=== PATIENT | male | born 1990 | race Caucasian/White ===

== ENCOUNTER 2017-02-23 15:47 | Emergency (ER) | payer SELFPAY ==
[2017-02-23] MEDS ORDERED: NS 0.9% 1000 ML* 1,000 ML IV ONE (17:09)
[2017-02-23] MEDS ORDERED: Ondansetron INJ* 2 MG/ML VIAL IV ONE (17:09)
[2017-02-23 17:36] LABS: Hematocrit 49 % (42-52); Hemoglobin 16.4 g/dl (14.0-18.0); Mean Corpuscular HGB Conc 34 g/dl (31-36); Mean Corpuscular Hemoglobin 30 pg (27-31); Mean Corpuscular Volume 88 fL (80-94); Mean Platelet Volume 9 um3 (7.4-10.4); Red Blood Count 5.49 10^6/ul (4.0-5.4); Red Cell Distribution Width 13 % (10.5-15); White Blood Count 9.6 10^3/ul (3.5-10.8)
[2017-02-23 17:52] LABS: Albumin 4.6 g/dL (3.2-5.2); BUN/Creatinine Ratio 9.1 (8-20); Calcium 9.1 mg/dL (8.6-10.3); EGFR Non-African American 66.1 (>60); Globulin 3.3 g/dL (2-4); Potassium 3.6 mmol/L (3.5-5.0); Total Bilirubin 0.7 mg/dL (0.2-1.0); Total Protein 7.9 g/dL (6.4-8.9)
[2017-02-23] MEDS ORDERED: Ketorolac INJ* 30 MG/ML 1 ML VIAL IV ONE (18:17)
--- NOTE | 2017-02-23 18:41 | ED ---
Farhana Jarvis Anna, scribed for Solitario Kan MD on 02/23/17 at 1716 . GI/ HPI - HPI Summary HPI Summary: Patient is a 26 y/o male coming to [facility] presenting with intermittent watery diarrhea that began last night. The diarrhea is described as watery. He also experienced emesis yesterday, which has since resolved. He also feels spacey and has noticed some numbness and tingling in his hands. Denies abdominal cramping. Denies recent travel. Many of his co-workers were recently ill. He has been drinking Gatorade. - History of Current Complaint Chief Complaint: EDNauseaVomitDiarrh Time Seen by Provider: 02/23/17 16:58 Stated Complaint: DIZZINESS,NUMBNESS IN EXTREMITIES Hx Obtained From: Patient Pain Intensity: 7 - Allergy/Home Medications Allergies/Adverse Reactions: Allergies Allergy/AdvReac Type Severity Reaction Status Date / Time No Known Allergies Allergy Verified 02/23/17 17:29 PMH/Surg Hx/FS Hx/Imm Hx Cardiovascular History: Reports: Hx Hypertension Denies: Hx Myocardial Infarction Respiratory History: Denies: Hx Pulmonary Edema Infectious Disease History: No Infectious Disease History: Denies: Traveled Outside the [place] in Last 30 Days - Social History Alcohol Use: Occasionally Substance Use Type: Reports: Marijuana Smoking Status (MU): Current Every Day Smoker Review of Systems Positive: Vomiting, Diarrhea. Negative: Abdominal Pain Psychological: Normal All Other Systems Reviewed And Are Negative: Yes Physical Exam Triage Information Reviewed: Yes Vital Signs On Initial Exam: Initial Vitals Temp Pulse Resp BP Pulse Ox 98.4 F 106 16 129/83 97 02/23/17 16:00 02/23/17 16:00 02/23/17 16:00 02/23/17 16:00 02/23/17 16:00 Vital Signs Reviewed: Yes Appearance: Positive: Well-Appearing, No Pain Distress Skin: Positive: Warm, Skin Color Reflects Adequate Perfusion, Dry Head/Face: Positive: Normal Head/Face Inspection Eyes: Positive: Normal ENT: Positive: Normal ENT inspection Neck: Positive: Supple, Nontender Respiratory/Lung Sounds: Positive: Clear to Auscultation, Breath Sounds Present Cardiovascular: Positive: RRR Abdomen Description: Positive: Nontender, Soft Bowel Sounds: Positive: Present Musculoskeletal: Positive: Normal Neurological: Positive: Normal Psychiatric: Positive: Affect/Mood Appropriate - Ashby Coma Scale Coma Scale Total: 15 Diagnostics - Vital Signs Vital Signs Temp Pulse Resp BP Pulse Ox 02/23/17 16:00 98.4 F 106 16 129/83 97 - Laboratory Lab Results: Lab Results 02/23/17 02/23/17 Range/Units 17:20 17:20 WBC 9.6 (3.5-10.8) 10^3/ul RBC 5.49 H (4.0-5.4) 10^6/ul Hgb 16.4 (14.0-18.0) g/dl Hct 49 (42-52) % MCV 88 (80-94) fL MCH 30 (27-31) pg MCHC 34 (31-36) g/dl RDW 13 (10.5-15) % Plt Count 156 (150-450) 10^3/ul MPV 9 (7.4-10.4) um3 Neut % (Auto) 75.0 (38-83) % Lymph % (Auto) 14.0 L (25-47) % Mckenzie % (Auto) 10.8 H (1-9) % Eos % (Auto) 0 (0-6) % Baso % (Auto) 0.2 (0-2) % Absolute Neuts (auto) 7.2 (1.5-7.7) 10^3/ul Absolute Lymphs (auto) 1.4 (1.0-4.8) 10^3/ul Absolute Monos (auto) 1.0 H (0-0.8) 10^3/ul Absolute Eos (auto) 0 (0-0.6) 10^3/ul Absolute Basos (auto) 0 (0-0.2) 10^3/ul Absolute Nucleated RBC 0 10^3/ul Nucleated RBC % 0 Sodium 132 L (133-145) mmol/L Potassium 3.6 (3.5-5.0) mmol/L Chloride 96 L (101-111) mmol/L Carbon Dioxide 27 (22-32) mmol/L Anion Gap 9 (2-11) mmol/L BUN 12 (6-24) mg/dL Creatinine 1.32 H (0.67-1.17) mg/dL Est GFR ( Amer) 85.0 (>60) Est GFR (Non-Af Amer) 66.1 (>60) BUN/Creatinine Ratio 9.1 (8-20) Glucose 100 (70-100) mg/dL Calcium 9.1 (8.6-10.3) mg/dL Total Bilirubin 0.70 (0.2-1.0) mg/dL AST 22 (13-39) U/L ALT 20 (7-52) U/L Alkaline Phosphatase 40 (34-104) U/L Total Protein 7.9 (6.4-8.9) g/dL Albumin 4.6 (3.2-5.2) g/dL Globulin 3.3 (2-4) g/dL Albumin/Globulin Ratio 1.4 (1-3) Result Diagrams: 02/23/17 17:20 02/23/17 17:20 Lab Statement: Any lab studies that have been ordered have been reviewed, and results considered in the medical decision making process. GIGU Course/Dx - Course Course Of Treatment: Mr. Cooper improved here with fluids. - Diagnoses Provider Diagnoses: Gastroenteritis Discharge - Discharge Plan Condition: Stable Disposition: HOME Patient Education Materials: Gastroenteritis (ED), Acute Diarrhea (ED) Referrals: [facility] – [place] [facility]ICIAN REFERRAL [Outside] Additional Instructions: Follow up with primary care provider within 48 hours. Return to the emergency department for any new or worsening symptoms. The documentation as recorded by the Farhana gonzalez Anna accurately reflects the service I personally performed and the decisions made by , Solitario Kan MD.
[2017-02-23 20:11] VITALS: BP 155/76
== END 2017-02-23 19:40 | disposition home or self-care (01) ==
LOC: ED 15:47
DX: K52.9 Noninfective gastroenteritis and colitis, unspecified (principal); R42 Dizziness and giddiness; F17.210 Nicotine dependence, cigarettes, uncomplicated; R11.10 Vomiting, unspecified
CPT/HCPCS: 36415; 80053; 85025; 96374; 96375; 99283; J1885; J2405

== ENCOUNTER 2017-02-27 17:58 | Observation (INO) | payer SELFPAY ==
[2017-02-27] MEDS ORDERED: NS 0.9% 1000 ML* 1,000 ML IV ONE ×2 (18:22→20:18)
[2017-02-27 19:31] LABS: Hematocrit 48 % (42-52); Hemoglobin 16.8 g/dl (14.0-18.0); Mean Corpuscular HGB Conc 35 g/dl (31-36); Mean Corpuscular Hemoglobin 29 pg (27-31); Mean Corpuscular Volume 84 fL (80-94); Mean Platelet Volume 10 um3 (7.4-10.4); Red Blood Count 5.71 10^6/ul (4.0-5.4); Red Cell Distribution Width 13 % (10.5-15)
[2017-02-27] MEDS ORDERED: Ondansetron INJ* 2 MG/ML VIAL IV ONE (19:33)
[2017-02-27] MEDS ORDERED: Ketorolac INJ* 30 MG/ML 1 ML VIAL IV PUSH ONE (19:33)
[2017-02-27 19:51] LABS: Albumin 3.4 g/dL (3.2-5.2); BUN/Creatinine Ratio 15.5 (8-20); Calcium 8.5 mg/dL (8.6-10.3); EGFR African American 64.3 (>60); Globulin 3.4 g/dL (2-4); Total Bilirubin 0.6 mg/dL (0.2-1.0); Total Protein 6.8 g/dL (6.4-8.9)
[2017-02-27 20:08] LABS: Potassium 2.7 mmol/L (3.5-5.0)
[2017-02-27] MEDS ORDERED: KCL 10 MEQ/50 ML IVPREMIX* 10 MEQ/50 ML BAG IV ONE (20:11)
[2017-02-27] MEDS ORDERED: Potassium Chlor TAB* 20 MEQ TAB.ER PO ONE (20:12)
--- NOTE | 2017-02-27 20:17 | RAD ---
INDICATION: Cough and fever. COMPARISON: There are no prior studies available for comparison. TECHNIQUE: Dual-energy PA and lateral views of the chest were obtained. FINDINGS: The heart is within normal limits in size. Mediastinal and hilar contours appear within normal limits. There is a focal moderate size infiltrate present in the right lower lobe with an associated small pleural effusion. The left lung appears clear. IMPRESSION: RIGHT LOWER LOBE INFILTRATE AND SMALL PLEURAL EFFUSION MOST CONSISTENT WITH PNEUMONIA.
--- NOTE | 2017-02-27 20:22 | ED ---
Influenza-Like Illness - HPI Summary HPI Summary: 26M presents with cough, body aches, n/v/d since Wednesday. He states that his stools are watery. He denies any bloody stools. He denies any recent antibiotic usage. He denies any abdominal pain except when he coughs. He states that his cough has gotten worst. He had a fever a couple days ago. He denies any chest pain. He complains of back pain and generalized body aches. He has only been taking Tylenol for his pain. Was seen here on Tuesdays and told has gastroenteritis and was not given anything due not being nauseous at the time. - History of Current Complaint Chief Complaint: EDGeneral Time Seen by Provider: 02/27/17 18:20 - Allergy/Home Medications Allergies/Adverse Reactions: Allergies Allergy/AdvReac Type Severity Reaction Status Date / Time No Known Allergies Allergy Verified 02/23/17 17:29 PMH/Surg Hx/FS Hx/Imm Hx Cardiovascular History: Reports: Hx Hypertension Denies: Hx Myocardial Infarction Respiratory History: Reports: Hx Asthma Denies: Hx Pulmonary Edema Infectious Disease History: No Infectious Disease History: Denies: Traveled Outside the [place] in Last 30 Days - Family History Known Family History: Positive: Hypertension - Social History Alcohol Use: None Substance Use Type: Reports: None, Marijuana Smoking Status (MU): Former Smoker Review of Systems Positive: Fever Negative: Chest Pain Positive: Shortness Of Breath, Cough Positive: Vomiting, Diarrhea, Nausea. Negative: Abdominal Pain All Other Systems Reviewed And Are Negative: Yes Physical Exam Triage Information Reviewed: Yes Vital Signs On Initial Exam: Initial Vitals Temp Pulse Resp BP Pulse Ox 97.5 F 105 20 125/84 95 02/27/17 18:04 02/27/17 18:04 02/27/17 18:04 02/27/17 18:04 02/27/17 18:04 Vital Signs Reviewed: Yes Appearance: Positive: Ill-Appearing Skin: Positive: Warm, Dry Head/Face: Positive: Normal Head/Face Inspection Eyes: Positive: Normal, Conjunctiva Clear ENT: Positive: Normal ENT inspection, Pharynx normal, TMs normal Neck: Positive: Supple, Nontender, No Lymphadenopathy Respiratory/Lung Sounds: Positive: Breath Sounds Present, Other - postive egophony right side lungs Cardiovascular: Positive: Normal, RRR Abdomen Description: Positive: Nontender, Soft Bowel Sounds: Positive: Present - Steve Coma Scale Coma Scale Total: 15 Diagnostics - Vital Signs Vital Signs Temp Pulse Resp BP Pulse Ox 02/27/17 18:04 97.5 F 105 20 125/84 95 - Laboratory Lab Results: Lab Results 02/27/17 02/27/17 02/27/17 Range/Units 19:15 19:15 19:15 WBC 14.0 H (3.5-10.8) 10^3/ul RBC 5.71 H (4.0-5.4) 10^6/ul Hgb 16.8 (14.0-18.0) g/dl Hct 48 (42-52) % MCV 84 (80-94) fL MCH 29 (27-31) pg MCHC 35 (31-36) g/dl RDW 13 (10.5-15) % Plt Count 140 L (150-450) 10^3/ul MPV 10 (7.4-10.4) um3 Neut % (Auto) 79.4 (38-83) % Lymph % (Auto) 13.0 L (25-47) % Garza % (Auto) 7.5 (1-9) % Eos % (Auto) 0 (0-6) % Baso % (Auto) 0.1 (0-2) % Absolute Neuts (auto) 11.1 H (1.5-7.7) 10^3/ul Absolute Lymphs (auto) 1.8 (1.0-4.8) 10^3/ul Absolute Monos (auto) 1.0 H (0-0.8) 10^3/ul Absolute Eos (auto) 0 (0-0.6) 10^3/ul Absolute Basos (auto) 0 (0-0.2) 10^3/ul Absolute Nucleated RBC 0.01 10^3/ul Nucleated RBC % 0.1 Sodium 127 L (133-145) mmol/L Potassium 2.7 L* (3.5-5.0) mmol/L Chloride 91 L (101-111) mmol/L Carbon Dioxide 23 (22-32) mmol/L Anion Gap 13 H (2-11) mmol/L BUN 26 H (6-24) mg/dL Creatinine 1.68 H (0.67-1.17) mg/dL Est GFR ( Amer) 64.3 (>60) Est GFR (Non-Af Amer) 50.0 (>60) BUN/Creatinine Ratio 15.5 (8-20) Glucose 112 H (70-100) mg/dL Lactic Acid 1.0 (0.5-2.0) mmol/L Calcium 8.5 L (8.6-10.3) mg/dL Total Bilirubin 0.60 (0.2-1.0) mg/dL AST 84 H (13-39) U/L ALT 47 (7-52) U/L Alkaline Phosphatase 36 (34-104) U/L C-React Prot High Sens Pending Total Protein 6.8 (6.4-8.9) g/dL Albumin 3.4 (3.2-5.2) g/dL Globulin 3.4 (2-4) g/dL Albumin/Globulin Ratio 1.0 (1-3) Lipase 17 (11.0-82.0) U/L Result Diagrams: 02/27/17 19:15 02/27/17 19:15 Lab Statement: Any lab studies that have been ordered have been reviewed, and results considered in the medical decision making process. - Radiology chest Xray Interpretation: Positive (See Comments) - IMPRESSION: RIGHT LOWER LOBE INFILTRATE AND SMALL PLEURAL EFFUSION MOST CONSISTENT WITH PNEUMONIA. Radiology Interpretation Completed By: Radiologist - EKG No standard instances Cardiac Rate: NL EKG Rhythm: Sinus Rhythm Flu Symptom Course/Dx - Course Course Of Treatment: 26M presents with n/v/d and cough for 6 days. was seen here on Wednesday and told has gastroenteritis. tried imodium without any change in stool. states has not been sleeping or eatting at all due to generalized muscle aches. on exam lungs has positive egophony on right side of lungs, abdomen nontender. does not appear acutely ill. labs: WBC 14 previous normal. Cr 1.6 was 1.32. K low 2.7 so gave oral and IV potassium. discussed with hospitalist, Stephanie, who will admit to rehydrate due to kidney injury and pneumonia present on chest xray. - Diagnoses Differential Diagnosis/HQI/PQRI: Positive: Influenza, Pneumonia, Upper Respiratory Infection Provider Diagnoses: Pneumonia, Acute kidney injury, Diarrhea Discharge - Discharge Plan Condition: Good Disposition: ADMITTED TO [facility] Referrals: No Primary Care Phys,NOPCP [Primary Care Provider] -
[2017-02-27] MEDS ORDERED: Levofloxacin 750 MG IVPREMIX(* 750 MG/150 ML BAG IVPB ONE (20:44)
[2017-02-27] MEDS ORDERED: diPHENhydraMINE IV* 50 MG/ML 1 ml VIAL (BENADRYL) SLOW PUSH ONE (21:04)
[2017-02-27] MEDS ORDERED: Ondansetron INJ* 2 MG/ML VIAL IV PRN (21:39)
[2017-02-27] MEDS ORDERED: Morphine INJ* 4 MG/ML 1 ML SYRINGE IV PRN (21:39)
[2017-02-27] MEDS ORDERED: NS 0.9% 1000 ML* 1,000 ML IV SCH (21:45)
[2017-02-27] MEDS: KCL 10 MEQ/50 ML IVPREMIX* 10 MEQ/50 ML BAG IV SCH (22:52)
[2017-02-28] MEDS: KCL 10 MEQ/50 ML IVPREMIX* 10 MEQ/50 ML BAG IV SCH ×2 (00:02→01:31)
[2017-02-28 00:51] LABS: Urine Bacteria Absent (Absent); Urine Bilirubin Negative (Negative); Urine Glucose Negative (Negative); Urine Nitrite Negative (Negative)
--- NOTE | 2017-02-28 02:57 | HP ---
HOSPITAL MEDICINE HISTORY AND PHYSICAL: DATE OF ADMISSION: 02/27/17 PRIMARY CARE PHYSICIAN: None. ATTENDING PHYSICIAN: Dr. Omar Salgado *(dictation provided by Stephanie Woods NP) CHIEF COMPLAINT: Nausea, vomiting, diarrhea. HISTORY OF PRESENT ILLNESS: Mr. Cooper is a 26-year-old male with no significant past medical history who originally presented to our ER on 02/23/17 with concern for nausea, vomiting, and diarrhea. At that time, the patient was stable and it was felt that he likely just had a viral gastroenteritis. He was discharged to home. The patient states over the past 2 to 3 days that he continued to have severe nausea, vomiting, diarrhea. He does not have a thermometer, but does not feel that he had a temperature. I will note that he did have a fever during the previous ER visit. In addition to this, the patient states that he has been feeling that his breath is a little "tighter" and he is a little more winded with walking. He reports having up to 5 to 7 episodes of emesis today. He does not report any known aspiration. He is able to keep down water, but no other solid foods. He has almost a constant diarrhea per his report. He denies any chest pain. He denies any abdominal pain. He decided to return to the ED today due to feeling lightheaded and shaky. In the emergency room, Mr. Cooper had labs, which showed a sodium of 127 and potassium of 2.7, BUN and creatinine elevated to 26 and 1.68 respectively. His CRP is quite high at 266.53. His WBC is elevated to 14.0. Based on the patient 's concern for fever and mild shortness of breath, a chest x-ray was obtained which did show a right lower lobe infiltrate. PAST MEDICAL HISTORY: None. MEDICATIONS: None. ALLERGIES: None. FAMILY HISTORY: The patient states that there is lung cancer in the family in his aunt and uncle on his mother side. He believes his mom has diabetes and his dad has hypertension. SOCIAL HISTORY: The patient is a continued smoker. He has been smoking since age of 10. He has been smoking about 1 to 2 cigarettes over the past few days while he has been unwell. He states he drinks alcohol occasionally, but not too excess and he has had no history of alcohol withdrawal symptoms. He smokes marijuana. He is not able to offer healthcare proxy today. PHYSICAL EXAMINATION GENERAL: Mr. Cooper is sitting in the bed. He is in no acute distress. He is calm and cooperative with my examination. VITAL SIGNS: Temperature 98.7, pulse rate 91, respiratory rate 16, O2 sat 95% on room air, blood pressure 125/74. LUNGS: Coarse rhonchi bilaterally, right greater than left with no accessory muscle use and good aeration. HEART: S1, S2. No murmur, rub or gallop and regular. ABDOMEN: Soft and nontender with bowel sounds positive x4. EXTREMITIES: No cyanosis or edema. SKIN: Intact. NEUROLOGIC: He is alert and oriented x3 and moves all extremities equally. There is no facial asymmetry or focal weakness. Extraocular movements are intact. LABORATORY DATA: WBC 14.0, hemoglobin 16.8, hematocrit 48, platelet count 140. Sodium 127, potassium 2.7, chloride 91, serum bicarbonate 23, BUN 26, creatinine 1.68, glucose 112, lactic acid 1.0, CRP 266.53. EKG shows sinus rhythm with no evidence of ischemia and chest x-ray shows a right lower lobe infiltrate with a small pleural effusion. ASSESSMENT: Mr. Cooper is a 26-year-old male with no significant past medical history who presents to the hospital with nausea, vomiting, and diarrhea x5 days with ability to only keep down water who presents with hyponatremia, hypokalemia, acute renal failure, and right lower lobe pneumonia. Our plans are for observation in the hospital for the followin. Pneumonia: Plan to treat with Levaquin intravenously since the patient cannot tolerate oral intake. He is not hypoxic and not requiring any oxygen. Lactic acid is normal. Blood cultures will be sent. 2. Nausea, vomiting, and diarrhea. The patient has had 5 days of symptoms, is now showing signs of dehydration with hyponatremia, hypokalemia, and mild acute renal failure. Our plans will be for intravenous hydration, which has already been underway in the emergency room. He will have Zofran available p.r.n. I will replete his potassium tonight and will recheck all his labs tomorrow. He will have Zofran available for nausea as needed. 3. Acute kidney injury. Suspect this is secondary to dehydration in setting of nausea, vomiting, and diarrhea. Plan to provide IV fluids and repeat labs in AM. 4. Pain. The patient reports having chronic hip pain on the right and significant body aches keeping him from sleeping. Plan for morphine p.r.n. due to his inability to tolerate oral intake. 5. DVT prophylaxis with early mobility. 6. Disposition to medical floor. TIME SPENT: Approximately 60 minutes were spent on the admission of this patient, more than half the time spent with him at the bedside reviewing the events leading up to this hospitalization, performing the physical examination, and reviewing the plan of care. STEPHANIE WOODS, YULIET [id number]/CPS #: [id number] FUNMI
[2017-02-28 05:49] LABS: Hematocrit 41 % (42-52); Hemoglobin 14.2 g/dl (14.0-18.0); Mean Corpuscular HGB Conc 35 g/dl (31-36); Mean Corpuscular Hemoglobin 30 pg (27-31); Mean Corpuscular Volume 85 fL (80-94); Mean Platelet Volume 10 um3 (7.4-10.4); Red Cell Distribution Width 14 % (10.5-15); White Blood Count 9.4 10^3/ul (3.5-10.8)
[2017-02-28 06:06] LABS: Calcium 7.4 mg/dL (8.6-10.3); EGFR African American 90.5 (>60); EGFR Non-African American 70.4 (>60); Potassium 3.4 mmol/L (3.5-5.0)
[2017-02-28 07:37] VITALS: BP 122/71
--- NOTE | 2017-02-28 11:12 | PN ---
Subjective Date of Service: 02/28/17 Interval History: Mr. Cooper states that he feels 100% better and is very eager for discharge to home. Objective Active Medications: Levofloxacin/Dextrose (Levaquin 750 Mg Ivpremix(*)) 750 mg in 150 mls @ 100 mls /hr IVPB Q24H STEPHANE Morphine Sulfate (Morphine Inj (Syringe)*) 4 mg IV Q4H PRN Ondansetron HCl (Zofran Inj*) 4 mg IV Q4H PRN Vital Signs 02/27/17 02/27/17 02/27/17 21:36 21:45 22:33 Temperature 98.7 F 97.9 F 97.9 F Pulse Rate 91 88 88 Respiratory 16 20 20 Rate Blood Pressure 125/74 133/62 133/62 (mmHg) O2 Sat by Pulse 95 99 99 Oximetry 02/27/17 02/27/17 02/28/17 22:49 23:49 00:49 Temperature Pulse Rate Respiratory 20 18 18 Rate Blood Pressure (mmHg) O2 Sat by Pulse Oximetry 02/28/17 02/28/17 03:37 07:20 Temperature 98.6 F 97.7 F Pulse Rate 99 105 Respiratory 16 20 Rate Blood Pressure 119/66 122/71 (mmHg) O2 Sat by Pulse 96 94 Oximetry Oxygen Devices in Use Now: None Appearance: Male sitting up in bed in NAD Neck: NL Appearance and Movements; NL JVP Respiratory: Symmetrical Chest Expansion and Respiratory Effort, - - Coarse rhonchi bilaterally, clears mostly with cough Cardiovascular: NL Sounds; No Murmurs; No JVD, No Edema Abdominal: NL Sounds; No Tenderness; No Distention Extremities: No Edema Skin: No Rash or Ulcers Neurological: Alert and Oriented x 3, NL Muscle Strength and Tone Nutrition: Taking PO's Result Diagrams: 02/28/17 05:16 02/28/17 05:16 Additional Lab and Data: Lab Results 02/27/17 02/27/17 02/27/17 Range/Units 19:15 19:15 19:15 WBC 14.0 H (3.5-10.8) 10^3/ul RBC 5.71 H (4.0-5.4) 10^6/ul Hgb 16.8 (14.0-18.0) g/dl Hct 48 (42-52) % MCV 84 (80-94) fL MCH 29 (27-31) pg MCHC 35 (31-36) g/dl RDW 13 (10.5-15) % Plt Count 140 L (150-450) 10^3/ul MPV 10 (7.4-10.4) um3 Neut % (Auto) 79.4 (38-83) % Lymph % (Auto) 13.0 L (25-47) % Vermillion % (Auto) 7.5 (1-9) % Eos % (Auto) 0 (0-6) % Baso % (Auto) 0.1 (0-2) % Absolute Neuts (auto) 11.1 H (1.5-7.7) 10^3/ul Absolute Lymphs (auto) 1.8 (1.0-4.8) 10^3/ul Absolute Monos (auto) 1.0 H (0-0.8) 10^3/ul Absolute Eos (auto) 0 (0-0.6) 10^3/ul Absolute Basos (auto) 0 (0-0.2) 10^3/ul Absolute Nucleated RBC 0.01 10^3/ul Nucleated RBC % 0.1 Sodium 127 L (133-145) mmol/L Potassium 2.7 L* (3.5-5.0) mmol/L Chloride 91 L (101-111) mmol/L Carbon Dioxide 23 (22-32) mmol/L Anion Gap 13 H (2-11) mmol/L BUN 26 H (6-24) mg/dL Creatinine 1.68 H (0.67-1.17) mg/dL Est GFR ( Amer) 64.3 (>60) Est GFR (Non-Af Amer) 50.0 (>60) BUN/Creatinine Ratio 15.5 (8-20) Glucose 112 H (70-100) mg/dL Lactic Acid 1.0 (0.5-2.0) mmol/L Calcium 8.5 L (8.6-10.3) mg/dL Total Bilirubin 0.60 (0.2-1.0) mg/dL AST 84 H (13-39) U/L ALT 47 (7-52) U/L Alkaline Phosphatase 36 (34-104) U/L C-React Prot High Sens Pending Total Protein 6.8 (6.4-8.9) g/dL Albumin 3.4 (3.2-5.2) g/dL Globulin 3.4 (2-4) g/dL Albumin/Globulin Ratio 1.0 (1-3) Lipase 17 (11.0-82.0) U/L Assess/Plan/Problems-Billing Assessment: Mr. Cooper is a 26 yo male with no significant PMH who was admitted on 02/27/17 with N/V/D, pneumonia, and acute kidney injury. - Patient Problems (1) Pneumonia Comment: Pt afebrile, not hypoxic. Tolerating oral intake now. Continue levaquin to complete a 7 day course. Smoking cessation strongly encouraged. (2) Viral gastroenteritis Comment: Resolved. (3) Abnormal blood creatinine level Comment: Creatinine improved but remains abnormal. Concern for 3+ protein in urine as well. Reviewed with Dr. Do who notes that there can be protein in urine during acute febrile illness and that patient should have recheck of UA and possible 24 hr urine collection in 2-3 weeks. Strongly encouraged patient to obtain a PCP. Our office will call him on Wednesday with the name and an appointment. Status and Disposition: OBV. Discharge to home.
[2017-02-28] MEDS ORDERED: Levofloxacin 750 MG IVPREMIX(* 750 MG/150 ML BAG IVPB SCH (22:00)
--- NOTE | 2017-03-01 10:41 | DS ---
HOSPITAL MEDICINE DISCHARGE SUMMARY: DATE OF ADMISSION: 02/27/17 DATE OF DISCHARGE: 02/28/17 PRIMARY CARE PHYSICIAN: None. ATTENDING PHYSICIAN: Dr. Coral Bashir* (dictation provided by Stephanie Woods NP) . PRIMARY DIAGNOSES: 1. Pneumonia. 2. Nausea, vomiting, diarrhea with suspect viral gastroenteritis. 3. Acute kidney injury. SECONDARY DIAGNOSES: None. MEDICATIONS AT THE TIME OF DISCHARGE: Levaquin 750 mg p.o. daily x7 days. HOSPITAL COURSE: Mr. Cooper is a 26-year-old male with no significant past medical history, who presented to the hospital on 02/27/17 with concern for persistent nausea, vomiting, and diarrhea. Please see the dictated H and P from myself for complete details. In brief, the patient had reported over 5 days of symptoms. He had been to the emergency room on 02/23/17 out of concern for these symptoms and was diagnosed with viral gastroenteritis and discharged to home from the emergency room. The patient returned today when his symptoms were persistent and he also felt lightheaded and shaky. In the emergency room, he had acute kidney injury with a creatinine of 1.68 and a BUN of 26. He also had hypokalemia with a potassium of 2.7 and a sodium of 127. His white blood cell count was 14. He was afebrile, mildly tachycardic. Blood pressure was stable. The patient was also complaining of some very mild shortness of breath and had bilaterally rhonchorous lung garcia and therefore went for a chest x- ray which actually showed a right lower lobe pneumonia. Mr. Cooper was admitted to the hospital for treatment of pneumonia in the setting of nausea, vomiting, and diarrhea. The patient received Levaquin intravenously. He also had Zofran available p.r.n. Finally, he had intravenous fluids for his acute kidney injury and potassium supplementation. Mr. Cooper was feeling much better by the next morning. He was tolerating oral intake without issue. He was breathing easily and not hypoxic. His nausea, vomiting, and diarrhea have resolved. Mr. Cooper is medically stable for discharge to home. He does not have a primary care physician and I counseled him at length that he should obtain one. Our office will be calling him on Wednesday with details about potential providers and appointment dates. I note that the patient's creatinine has been checked 3 times over the past week and has remained abnormal. It is better today at discharge at 1.25. However, he also has 3+ ____ in his urinalysis. I did review this with the patient and told him that he very much needs to have close followup for evaluation of his kidney function. I did speak with Dr. Do from Nephrology about the patient's laboratory values and he stated that the patient could have protein spilling into the urine during acute febrile illness and that the best plan would be to obtain a 24-hour urine specimen in approximately 2 to 3 weeks since the patient has recovered from his illness. In addition to this issue with his kidney function, I have also counseled the patient at length about smoking cessation. DISPOSITION: To home. DIET: Regular. ACTIVITY: As tolerated. Our office will be calling the patient on Wednesday with the name of a primary care provider and an appointment to follow up on this hospitalization and specifically on kidney function. TIME SPENT: Approximately 60 minutes was spent on the discharge of this patient , more than half time spent with the patient at the bedside reviewing the events leading up to this hospitalization, performing the physical examination, and reviewing the plan [place] [id number]/[facility] #: [id number] FUNMI
== END 2017-02-28 11:20 | disposition home or self-care (01) ==
LOC: ED 17:58 → MED 20:53
PROVIDERS: ADMIT Internal Medicine; ATTEND Hospitalist
DX: J18.9 Pneumonia, unspecified organism (principal); R11.2 Nausea with vomiting, unspecified; R19.7 Diarrhea, unspecified; N17.9 Acute kidney failure, unspecified; Z87.891 Personal history of nicotine dependence
CPT/HCPCS: 36415; 71020; 80048; 80053; 81003; 81015; 83605; 83690; 85025; 86141; 87040; 93005; 96361; 96365; 96366; 96367; 96375; 99283; A9270-GY; G0378; J1885; J2270; J2405; J3480